=== PATIENT | male | born 1960 | race Caucasian/White ===

== ENCOUNTER 2020-01-31 11:32 | Observation (INO) | payer OTHER ==
[~2020-01-31] VITALS: Ht 182.9 cm; Wt 111.0 kg
[~2020-01-31 11:32] MED LIST: IBUP-1223 PO
--- NOTE | 2020-01-31 12:12 | NUR ---
PT CONNECTED TO ALL MONITORING. NIECE AT BEDSIDE. CALL LIGHT IN REC. PIV PLACED, LABS DRAWN. MD AT BEDSIDE FOR ASSESSMENT. AWAITING ORDERS.
[2020-01-31] MEDS ORDERED: SODIUM CHLORIDE FLUSH 10ML SYR IVF ONE (12:30)
[2020-01-31 12:33] LABS: MEAN CORPUSCULAR HEMOGLOBIN 37.8 pg (27.5-34.5); MEAN CORPUSCULAR HGB CONC 34.3 g/dL (33.2-36.2); MEAN CORPUSCULAR VOLUME 110.3 fL (81-97); MEAN PLATELET VOLUME 7.8 fL (7.4-10.4); PLATELET COUNT 122 x10^3/uL (130-400); RED CELL DISTRIBUTION WIDTH 14.6 % (9.4-14.8)
--- NOTE | 2020-01-31 12:36 | NUR ---
PT AMBULATED TO RESTROOM WITH STEADY GAIT TO PROVIDE URINE SAMPLTE. UA COLLECTED AND SENT TO LAB.
[2020-01-31 12:41] LABS: INTERNATIONAL NORMALIZED RATIO 1.28 (0.93-1.1); PROTHROMBIN TIME 13.6 Seconds (9.6-11.5)
[2020-01-31 12:42] LABS: ALANINE AMINOTRANSFERASE 116 U/L (12-78); ALBUMIN 2.9 g/dL (3.4-5.0); ANION GAP 7 mmol/L (5-15); CALCIUM 8.6 mg/dL (8.5-10.1); CHLORIDE 105 mmol/L (98-107); CREATININE 0.69 mg/dL (0.7-1.3)
[2020-01-31 12:54] LABS: MICROSCOPIC INDICATED
[2020-01-31 12:55] LABS: ALKALINE PHOSPHATASE 106 U/L (45-117); BILIRUBIN,TOTAL 3.9 mg/dL (0.2-1.0); TOTAL PROTEIN 8.4 g/dL (6.4-8.2)
[2020-01-31] MEDS ORDERED: OMNIPAQUE 350 MG/ML, 100ML BOTTLE ONE (13:13)
--- NOTE | 2020-01-31 13:15 | NUR ---
PT BACK FROM CT. PT RECONNECTED TO MONITORING. CALL LIGHT IN REACH.
[2020-01-31 13:21] LABS: BASOPHILS # (AUTO) 0.08 x10^3/uL (0-0.1); BASOPHILS % (AUTO) 2 % (0-1); EOSINOPHILS # (AUTO) 0.19 x10^3/uL (0-0.4); EOSINOPHILS % (AUTO) 4 % (1-7); LYMPHOCYTES % (AUTO) 25 % (22-44); MD SCAN; MONOCYTES # (AUTO) 0.57 x10^3/uL (0.2-0.8); MONOCYTES % (AUTO) 11 % (2-9); NEUTROPHILS # (AUTO) 3.11 x10^3/uL (1.8-6.8); NEUTROPHILS % (AUTO) 59 % (42-75)
[2020-01-31] MEDS ORDERED: MVI ADULT IV ONE (13:30)
[2020-01-31] MEDS ORDERED: THIAMINE IV ONE (13:30)
[2020-01-31] MEDS ORDERED: [UNRECOGNIZED DRUG - OTHER] IV ONE (13:30)
[2020-01-31] MEDS ORDERED: FOLIC ACID IV ONE (13:30)
[2020-01-31] MEDS ORDERED: MAGNESIUM SULFATE IV ONE (13:30)
[2020-01-31 13:43] LABS: AMPHETAMINE SCREEN, URINE Negative (Negative); BARBITURATE SCREEN, URINE Negative (Negative); BENZODIAZEPINE SCREEN, URINE Negative (Negative); CANNABINOID SCREEN, URINE Negative (Negative); COCAINE SCREEN, URINE Negative (Negative); METHADONE SCREEN, URINE Negative (Negative); OPIATE SCREEN, URINE Negative (Negative)
[2020-01-31] MEDS ORDERED: DOCUSATE 100 MG CAPSULE PO PRN (14:30)
[2020-01-31] MEDS ORDERED: hydrALAzine 20 MG/ML, 1ML IVPush PRN (14:30)
[2020-01-31] MEDS ORDERED: MELATONIN 5 MG TABLET PO PRN (14:30)
[2020-01-31] MEDS: NICOTINE 7 MG/24 HR PATCH.TD24 TD SCH (14:30)
[2020-01-31] MEDS ORDERED: LABETALOL 5MG/ML, 20ML IVPush PRN (14:30)
[2020-01-31] MEDS ORDERED: LORazepam 2 MG/ML, 1ML IV PRN ×4 (14:30)
[2020-01-31] MEDS ORDERED: LORazepam 0.5MG TABLET PO PRN (14:30)
[2020-01-31] MEDS ORDERED: LORazepam 1MG TABLET PO PRN ×3 (14:30)
[2020-01-31] MEDS: ENOXAPARIN 40 MG/0.4 ML SQ SCH (14:30)
[2020-01-31] MEDS ORDERED: ONDANSETRON 2MG/ML, 2ML IVPush PRN (14:30)
[2020-01-31] MEDS ORDERED: ACETAMINOPHEN 325 MG TABLET PO PRN (14:30)
[2020-01-31] MEDS: DIAZEPAM 10 MG TABLET PO SCH ×2 (14:30→21:25)
--- NOTE | 2020-01-31 14:49 | NUR ---
CLARIFIED VALIUM ORDER WITH DR CACERES. PT TO GET VALIUM 10MG PO [id number], THEN VALIUM 5MG PO. VALIUM 10MG PO TO BE GIVEN NOW.
[2020-01-31] MEDS ORDERED: DIAZEPAM 5 MG TABLET ONE (14:55)
[2020-01-31] MEDS ORDERED: ENOXAPARIN 40 MG/0.4 ML ONE (14:56)
[2020-01-31] MEDS ORDERED: NICOTINE 7 MG/24 HR PATCH.TD24 ONE (14:56)
--- NOTE | 2020-01-31 15:08 | NUR ---
EEG AT BEDSIDE.
--- NOTE | 2020-01-31 16:15 | NUR ---
REPORT GIVEN TO JOHN PAUL.
[2020-01-31 17:50] VITALS: BP 163/83
[2020-01-31 18:50] VITALS: BP 165/91
[2020-01-31] MEDS: CEFTRIAXONE PMX 1GM/50ML 50 ML IV SCH (21:26)
[2020-02-01 01:56] VITALS: BP 165/86
[2020-02-01] MEDS: DIAZEPAM 10 MG TABLET PO SCH ×2 (03:53→10:19)
[2020-02-01 06:41] VITALS: BP 167/92
[2020-02-01 07:55] LABS: ALBUMIN 2.8 g/dL (3.4-5.0); ANION GAP 6 mmol/L (5-15); CALCIUM 8.6 mg/dL (8.5-10.1); CHLORIDE 106 mmol/L (98-107)
[2020-02-01 08:00] LABS: ALANINE AMINOTRANSFERASE 103 U/L (12-78); ALKALINE PHOSPHATASE 103 U/L (45-117); BILIRUBIN,TOTAL 4.7 mg/dL (0.2-1.0); CREATININE 0.71 mg/dL (0.7-1.3)
[2020-02-01 08:22] LABS: BASOPHILS # (AUTO) 0.04 x10^3/uL (0-0.1); BASOPHILS % (AUTO) 1 % (0-1); EOSINOPHILS # (AUTO) 0.15 x10^3/uL (0-0.4); EOSINOPHILS % (AUTO) 4 % (1-7); LYMPHOCYTES # (AUTO) 0.84 x10^3/uL (1-3.4); LYMPHOCYTES % (AUTO) 21 % (22-44); MD SCAN; MEAN CORPUSCULAR HEMOGLOBIN 37.7 pg (27.5-34.5); MEAN CORPUSCULAR HGB CONC 33.8 g/dL (33.2-36.2); MEAN CORPUSCULAR VOLUME 111.3 fL (81-97); MEAN PLATELET VOLUME 7.9 fL (7.4-10.4); MONOCYTES # (AUTO) 0.45 x10^3/uL (0.2-0.8); MONOCYTES % (AUTO) 11 % (2-9); NEUTROPHILS # (AUTO) 2.64 x10^3/uL (1.8-6.8); NEUTROPHILS % (AUTO) 64 % (42-75); PLATELET COUNT 103 x10^3/uL (130-400); RED BLOOD COUNT 3.83 x10^6/uL (4.38-5.82); RED CELL DISTRIBUTION WIDTH 14.8 % (9.4-14.8)
[2020-02-01] MEDS ORDERED: THIAMINE 200 MG in DEXTROSE 5% 50 ML IVPB SCH (09:00)
[2020-02-01] MEDS ORDERED: LISINOPRIL 10 MG TABLET PO SCH (09:00)
[2020-02-01] MEDS: MULTIVITAMINS/MINERALS TABLET PO SCH (10:19)
[2020-02-01] MEDS: PANTOPRAZOLE 40MG TABLET PO SCH (10:19)
[2020-02-01 13:01] VITALS: BP 178/92
[2020-02-01] MEDS: NICOTINE 7 MG/24 HR PATCH.TD24 TD SCH (14:30)
[2020-02-01] MEDS: ENOXAPARIN 40 MG/0.4 ML SQ SCH (14:38)
[2020-02-01] MEDS: DIAZEPAM 5 MG TABLET PO SCH ×2 (14:39→21:02)
[2020-02-01] MEDS: LISINOPRIL 20 MG TABLET PO SCH (21:02)
[2020-02-01] MEDS: CEFTRIAXONE PMX 1GM/50ML 50 ML IV SCH (21:02)
[2020-02-01 22:52] VITALS: BP 161/71
[2020-02-02] MEDS: DIAZEPAM 5 MG TABLET PO SCH ×2 (02:48→08:08)
[2020-02-02 02:50] VITALS: BP 162/91
[2020-02-02 05:14] LABS: ALBUMIN 2.7 g/dL (3.4-5.0); CALCIUM 8.4 mg/dL (8.5-10.1); CHLORIDE 106 mmol/L (98-107)
[2020-02-02 05:19] LABS: ALANINE AMINOTRANSFERASE 93 U/L (12-78); ALKALINE PHOSPHATASE 91 U/L (45-117); ANION GAP 6 mmol/L (5-15); BILIRUBIN,TOTAL 6.3 mg/dL (0.2-1.0); CREATININE 0.84 mg/dL (0.7-1.3); TOTAL PROTEIN 7.8 g/dL (6.4-8.2)
[2020-02-02 07:16] VITALS: BP 155/49
[2020-02-02] MEDS: MULTIVITAMINS/MINERALS TABLET PO SCH (08:08)
[2020-02-02] MEDS: PANTOPRAZOLE 40MG TABLET PO SCH (08:08)
[2020-02-02] MEDS: LISINOPRIL 20 MG TABLET PO SCH (08:08)
[2020-02-02] MEDS ORDERED: THIAMINE 100MG TABLET PO SCH (09:00)
[2020-02-02] MEDS ORDERED: LISI-170 PO (10:00)
[2020-02-02] MEDS ORDERED: THIA100T67 PO (10:00)
[2020-02-02] MEDS ORDERED: DIAZ5TAB4 PO (10:00)
[2020-02-02] MEDS ORDERED: DIAZ5TAB PO (11:40)
[2020-02-02] MEDS ORDERED: LISI-420 PO (11:43)
== END 2020-02-02 11:52 | disposition home or self-care (01) ==
LOC: ED 12:41 → INTOOBSV 13:37 → EDIP 13:37 → SUATTDRO 13:44 → 4EST 16:56 → DCLOUNGE 02-02 11:39
PROVIDERS: ADMIT Hospitalist; ATTEND Hospitalist
DX: R41.3 Other amnesia (principal); R55 Syncope and collapse; K70.10 Alcoholic hepatitis without ascites; F10.20 Alcohol dependence, uncomplicated; B19.20 Unspecified viral hepatitis C without hepatic coma; D75.89 Other specified diseases of blood and blood-forming organs; D69.6 Thrombocytopenia, unspecified; I65.29 Occlusion and stenosis of unspecified carotid artery; G93.41 Metabolic encephalopathy; I10 Essential (primary) hypertension; R82.81 Pyuria; F17.210 Nicotine dependence, cigarettes, uncomplicated; F12.11 Cannabis abuse, in remission; Z79.899 Other long term (current) drug therapy
CPT/HCPCS: 36415; 70450; 70496; 70498; 71045; 76700; 80053; 80074; 80307; 81001; 82140; 82607; 83690; 83735; 84100; 84443; 85025; 85610; 85651; 87086; 87521; 93005; 95819; 96365; 96366; 96367; 96372; 99285; G0378; J0696; J1650; J3411; J3475; J7030; Q9967; 96374